=== PATIENT | male | born 1990 | race Caucasian/White ===

== ENCOUNTER 2020-07-25 10:20 | Emergency (ER) | payer BC ==
--- OUTSIDE RECORDS SUMMARY | 2020-07-25 10:23 | XMS REPORT | Continuity of Care Document ---
:1990 Author Organization [facility] t Address [address] [place] [address] Care Team Providers Name Role Phone MÓNICA Attending Clinician Unavailable MEAGAN Attending Clinician Unavailable ALLEY Attending Clinician Unavailable NUNU Attending Clinician Unavailable Problems Condition Condition Condition Status Onset Resolution Last Treating Co mments Source Name Details Category Date Date Treatment Clinician Date Chondromal Chondromal Problem Active U nivers [place] of [place] of HL7.CCDAR2 [place], [place] [facility] Hypogonadi Hypogonadi Problem Active U nivers sm, male sm, male HL7.CCDAR2 [place] of [place] [facility] Screening Screening Problem Active Uni vers for STD for STD HL7.CCDAR2 [place] of ([place] transmit[place] transmitte Ph y[place] d disease) d disease) an s Abnormal Abnormal Problem Active Unive rs urinalysis urinalysis HL7.CCDAR2 ity of [place] [facility] Low back Low back Problem Active Unive rs pain pain HL7.CCDAR2 ity of [place] [facility] Abdominal Abdominal Problem Active Uni vers pain of pain of HL7.CCDAR2 ity of multiple multiple [place] sites sites Physici ans Dysuria Dysuria Problem Active Univers HL7.CCDAR2 ity of [place] [facility] Urethral Urethral Problem Active Unive rs discharge discharge HL7.CCDAR2 ity of [place] [facility] Back pain Back pain Problem Active Uni vers HL7.CCDAR2 [place] of [place] [facility] Peroneal Peroneal Problem Active Unive rs tendinitis tendinitis HL7.CCDAR2 ity of , left , left [place] Physici ans Complete Complete Problem Active Unive rs tear of tear of HL7.CCDAR2 ity of medial medial [place] collateral collateral Ph ysici ligament ligament ans of left of left knee, knee, initial initial encounter encounter Allergies, Adverse Reactions, Alerts This patient has no known allergies or adverse reactions. Social History Smoking Status Start Date Stop Date Source Never smoker [facility] Medications Ordered Filled Start Stop Current Ordering Indication Dosage Frequency Signature Comments Components Source Medication Medication Date Date Medication? Clinician (SIG) Name Name Meloxicam Meloxicam 2017- Yes DUDLEY QD TAKE 1 Univers 7.5 MG Oral 7.5 MG Oral 3-21 MÓNICA TABLET ity of Tablet Tablet 00:00: M.D. DAILY WITH Hermes as 00 FOOD. Physici ans LevoFLOXaci LevoFLOXaci 2015-03 Yes SLOAN 1 QD TAKE 1 Univers n 500 MG n 500 MG 0-28 SAFFARI TABLET it y of Oral Tablet Oral Tablet 00:00: M.D. DAILY. [place] 00 Physici ans Pyridium Pyridium 2015-03 Yes SLOAN Q0.3333D TAKE 1 Univers 200 MG Oral 200 MG Oral 0-28 SAFFARI TABLET 3 ity of Tablet Tablet 00:00: M.D. TIMES [place] 00 DAILY Physici AFTER ans MEALS. Dexilant Dexilant Yes Univers CPDR CPDR ity of [place] Physici ans Procedures Procedure Date / Time Performed Performing Clinician Sour e [U] XRAY KNEE 3 VWS 2017-06-12 00:00:00 [facility] of [place] LEFT [id number] Physicians Encounters Start End Encounter Admission Attending Care Care Encounter Source Date/Time Date/Time Type Type Clinicians Facility Department ID 2017-06-12 2017-06-12 AppointNIA Stevens [place] [id number] Univers 16:30:00 16:30:00 t; DUDLEY SALES it y of TIMOTHY, M.D. [place] M.D. Physici ans 2016-06-07 2016-06-07 AppointNIA Mensah [facility] [id number] Univers 14:00:00 14:00:00 t; Mary BAKER [place] DOUG, P.A. Physi ci ans 2016-02-10 2016-02-10 AppointNIA Roberts [id number] Univers 15:15:00 15:15:00 t; TORI HAGER ity of LEEANN, D.O. [place] D.[place] Physici ans 2016-01-18 2016-01-18 NIA Siddiqui [id number] Univers 15:30:00 15:30:00 t; TORI HAGER itnina of Niki VALLE [place] Niki Physici ans 2015-12-26 2015-12-26 Appointmen NIA EDDY UTP [id number] Univers 09:00:00 09:00:00 t; DELTA EDDY it y of Zoila SORENSON M.D. Physici ans 2015-12-12 2015-12-12 Appointmen NIA EDDY UTP [id number] Univers 13:00:00 13:00:00 t; DELTA EDDY it y of Zoila SORENSON M.D. Physici ans 2015-07-06 2015-07-06 Appointmen NIA RHODSE UTP [id number] Univers 13:00:00 13:00:00 t; Mary BAKER [place] DOUG, P.A. Physi ci ans Results Test Description Test Time Test Comments Results Result Sour e Comments [U] XRAY KNEE 3 2017-06-12 Images Universit y of VWS LEFT [id number] 16:43:00 acquired, not [place] reported on Physicians this accession number.
--- NOTE | 2020-07-25 11:41 | RAD REPORT ---
EXAM DESCRIPTION: RAD - Chest Single View - 07/25/2020 11:36 am CLINICAL HISTORY: PAIN Chest pain. COMPARISON: No comparisons FINDINGS: Portable technique limits examination quality. The lungs are grossly clear. The heart is normal in size. No displaced fractures. IMPRESSION: No acute intrathoracic process suspected.
[2020-07-25 12:22] LABS: Absolute Lymphocytes (CBC) 1.6 K/uL (0.7-4.9); Basophils % 0.7 % (0-1.3); Hematocrit 41.5 % (39.6-49.0); Lymphocytes % 21.8 % (15.3-44.8); MPV 10.4 fL (7.6-11.3); RBC Red Blood Cell Count 4.77 M/uL (4.33-5.43)
[2020-07-25 12:28] LABS: ALT/SGPT 26 U/L (12-78); AST/SGOT 16 U/L (15-37); Albumin 3.9 g/dL (3.4-5.0); Alkaline Phosphatase 79 U/L (45-117); BUN Blood Urea Nitrogen 14 mg/dL (7-18); Bicarbonate 29 mmol/L (21-32); Bilirubin Direct 0.2 mg/dL (0-0.2); Bilirubin Total 0.9 mg/dL (0.2-1.0); Glucose Level 98 mg/dL (74-106); Magnesium 2.1 mg/dL (1.8-2.4); Potassium 4.3 mmol/L (3.5-5.1); Protein, Total 8.1 g/dL (6.4-8.2); Sodium Level 141 mmol/L (136-145); Troponin (Emerg Dept Use Only) < 0.02 ng/mL (0.0-0.045)
--- NOTE | 2020-07-25 13:15 | EDPHYS ---
Physician Documentation [facility] Name: Wilfredo Salomon Age: 30 yrs Sex: Male : 1990 Arrival Date: 07/25/2020 Time: 10:24 Bed 14 Private MD: ED Physician Haroldo Oreilly HPI: 07/25 12:12 This 30 yrs old Male presents to ER via Ambulatory with complaints of Chest kb Tightness, Nausea, Dizziness. 12:12 The patient or guardian reports chest pain that is located primarily in the substernal kb area. The pain does not radiate. Associated signs and symptoms: Pertinent positives: dizziness, nausea, vomiting. The chest pain is described as aching. Duration: The patient or guardian reports a single episode, that is now resolved. Modifying factors: The symptoms are alleviated by nothing. the symptoms are aggravated by nothing. Severity of pain: At its worst the pain was mild in the emergency department the pain has resolved. The patient has not experienced similar symptoms in the past. The patient has not recently seen a physician. Pt states he woke up late for work, called to let them know, then laid in bed for a little longer. While laying in bed he felt like the room started spinning, then started having chest pain. Pt got up and went outside where he felt nausea and had an episode of vomiting. Symptoms now resolved.. Historical: - Allergies: 10:43 No Known Allergies; em - PMHx: 10:43 GERD; em - PSHx: 10:43 None; em - Immunization history:: Adult Immunizations up to date, Client reports having NOT received the Covid vaccine. - Social history:: Smoking status: Patient denies any tobacco usage or history of. ROS: 12:11 Constitutional: Negative for fever, chills, and weight loss, Respiratory: Negative for kb shortness of breath, cough, wheezing, and pleuritic chest pain, MS/Extremity: Negative for injury and deformity, Skin: Negative for injury, rash, and discoloration. 12:11 Cardiovascular: Positive for chest pain, Negative for edema, orthopnea, palpitations, paroxysmal nocturnal dyspnea. 12:11 Abdomen/GI: Positive for nausea and vomiting, Negative for abdominal pain, diarrhea, constipation. 12:11 Neuro: Positive for dizziness. Exam: 12:07 Constitutional: This is a well developed, well nourished patient who is awake, alert, kb and in no acute distress. Head/Face: Normocephalic, atraumatic. Cardiovascular: Regular rate and rhythm with a normal S1 and S2. No gallops, murmurs, or rubs. No pulse deficits. Respiratory: Respirations even and unlabored. No increased work of breathing, no retractions or nasal flaring. Abdomen/GI: Soft, non-tender. No distention Skin: Warm, dry with normal turgor. Normal color. MS/ Extremity: Pulses equal, no cyanosis. Neurovascular intact. Full, normal range of motion. Neuro: Awake and alert, GCS 15, oriented to person, place, time, and situation. Moves all extremities. Normal gait. 12:07 ECG was reviewed by the Attending Physician. Vital Signs: 10:41 Pulse 79; Resp 18; Temp 98.1; Pulse Ox 99% ; Weight 127.01 kg; Height 5 ft. 10 in. em (177.80 cm); Pain 0/10; 10:47 BP 145 / 103; em 12:07 BP 124 / 87; Pulse 62; Resp 17; Pulse Ox 99% on R/A; tw2 13:01 BP 124 / 86 Supine; Pulse 68; Resp 17; Pulse Ox 99% on R/A; tw2 13:01 BP 129 / 83 Standing; Pulse 71; tw2 13:01 BP 128 / 91 Sitting; Pulse 67; tw2 10:41 Body Mass Index 40.18 (127.01 kg, 177.80 cm) em 13:01 pt states "i dont feel just right, like a little lightheaded but the room rooms not tw2 moving" MDM: 11:03 Patient medically screened. kb 12:10 Data reviewed: vital signs, nurses notes. Data interpreted: Pulse oximetry: on room air kb is 99 %. Interpretation: normal. 13:07 Counseling: I had a detailed discussion with the patient and/or guardian regarding: the kb historical points, exam findings, and any diagnostic results supporting the discharge/admit diagnosis, lab results, radiology results, the need for outpatient follow up, a family practitioner, to return to the emergency department if symptoms worsen or persist or if there are any questions or concerns that arise at home. 07/25 11:25 Order name: Basic Metabolic Panel; Complete Time: 12:29 kb 07/25 11:25 Order name: CBC with Diff; Complete Time: 12:48 kb 07/25 11:25 Order name: LFT's; Complete Time: 12:29 kb 07/25 11:25 Order name: Magnesium; Complete Time: 12:29 kb 07/25 11:25 Order name: Troponin (emerg Dept Use Only); Complete Time: 12:29 kb 07/25 11:25 Order name: XRAY Chest (1 view); Complete Time: 11:44 kb 07/25 11:25 Order name: EKG; Complete Time: 11:26 kb 07/25 11:25 Order name: Cardiac monitoring; Complete Time: 12:05 kb 07/25 11:25 Order name: EKG - Nurse/Tech; Complete Time: 12:07 kb 07/25 11:25 Order name: IV Saline Lock; Complete Time: 12:07 kb 07/25 11:25 Order name: Labs collected and sent; Complete Time: 12:07 kb 07/25 11:25 Order name: O2 Per Protocol; Complete Time: 11:43 kb 07/25 11:25 Order name: O2 Sat Monitoring; Complete Time: 11:43 kb 07/25 12:30 Order name: Orthostatics; Complete Time: 13:01 kb EC:07 Rate is 69 beats/min. Rhythm is regular. QRS [place] is Normal. ND interval is normal at kb 170 msec. QRS interval is normal at 90 msec. QT interval is normal at 386 msec. Administered Medications: No medications were administered Disposition: 07/25/20 13:14 Discharged to Home. Impression: Chest pain, unspecified, Dizziness and giddiness. - Condition is Stable. - Discharge Instructions: Nonspecific Chest Pain, Dkor-di-Drxw, Vertigo, Vvza-cu-Mixy. - Medication Reconciliation Form, Thank You Letter, Antibiotic Education, Prescription Opioid Use, Work release form form. - Follow up: Emergency Department; When: As needed; Reason: Worsening of condition. Follow up: Private Physician; When: 2 - 3 days; Reason: Recheck today's complaints, Continuance of care, Re-evaluation by your physician. Addendum: 07/28/2020 06:14 Co-signature as Attending Physician, Haroldo kiran a2 Signatures: Dispatcher [employer] Jesusita Aguilar, TOE TRIMMER-C TOE TRIMMER-Ckb Reid Black, RN RN em Carolynn Fay RN RN tw2 Haroldo Oreilly MD MD ma2 Corrections: (The following items were deleted from the chart) 07/25 13:47 13:14 07/25/2020 13:14 Discharged to Home. Impression: Chest pain, unspecified; tw2 Dizziness and giddiness. Condition is Stable. Forms are Work release form, Medication Reconciliation Form, Thank You Letter, Antibiotic Education, Prescription Opioid Use. Follow up: Emergency Department; When: As needed; Reason: Worsening of condition. Follow up: Private Physician; When: 2 - 3 days; Reason: Recheck today's complaints, Continuance of care, Re-evaluation by your physician. kb
--- NOTE | 2020-07-25 13:15 | ER ---
Nurse's Notes [facility] Name: Wilfredo Salomon Age: 30 yrs Sex: Male : 1990 Arrival Date: 07/25/2020 Time: 10:24 Bed 14 Private MD: Diagnosis: Chest pain, unspecified;Dizziness and giddiness Presentation: 07/25 10:44 Chief complaint: Patient states: I woke up late for work and while I was laying in bed em I became dizzy, like the room was spinning. Then I started having chest pains. When I got up I had nausea and vomited once. Coronavirus screen: Client denies travel out of the [place] in the last 14 days. Ebola Screen: Patient negative for fever greater than or equal to 101.5 degrees Fahrenheit, and additional compatible Ebola Virus Disease symptoms Patient denies exposure to infectious person. Patient denies travel to an Ebola-affected area in the 21 days before illness onset. No symptoms or risks identified at this time. Initial Sepsis Screen: Does the patient meet any 2 criteria? No. Patient's initial sepsis screen is negative. Does the patient have a suspected source of infection? No. Patient's initial sepsis screen is negative. Risk Assessment: Do you want to hurt yourself or someone else? Patient reports no desire to harm self or others. Onset of symptoms was July 25, 2020 at 09:00. 10:44 Method Of Arrival: Ambulatory em 10:44 Acuity: KENRICK 3 em Triage Assessment: 10:43 General: Appears in no apparent distress. comfortable, Behavior is calm, cooperative. em Pain: Denies pain. Cardiovascular: Cardiovascular: Reports chest pain, since 929, resolved at this time. Historical: - Allergies: 10:43 No Known Allergies; em - PMHx: 10:43 GERD; em - PSHx: 10:43 None; em - Immunization history:: Adult Immunizations up to date, Client reports having NOT received the Covid vaccine. - Social history:: Smoking status: Patient denies any tobacco usage or history of. Screenin:12 Abuse screen: Denies threats or abuse. Nutritional screening: No deficits noted. tw2 Tuberculosis screening: No symptoms or risk factors identified. Fall Risk None identified. Assessment: 11:50 General: Appears in no apparent distress. obese, well groomed, Behavior is calm, tw2 cooperative, agitated. Pain: Complains of pain in chest Pain does not radiate. Pain began this morning while in bed. Neuro: Level of Consciousness is awake, alert, obeys commands, Oriented to person, place, time, situation. Cardiovascular: Reports chest pain, that comes in waves and "when the pain hits he gets nauseous and dizzy". Cardiovascular: Denies shortness of breath, Capillary refill < 3 seconds Patient's skin is warm and dry. Respiratory: Airway is patent Respiratory effort is even, unlabored, Respiratory pattern is regular, symmetrical. GI: No signs and/or symptoms were reported involving the gastrointestinal system. : No signs and/or symptoms were reported regarding the genitourinary system. Musculoskeletal: Range of motion: intact in all extremities. 12:11 Reassessment: Patient appears in no apparent distress at this time. No changes from tw2 previously documented assessment. Patient and/or family updated on plan of care and expected duration. Pain level reassessed. Patient is alert, oriented x 3, equal unlabored respirations, skin warm/dry/pink. 13:03 Reassessment: Patient appears in no apparent distress at this time. No changes from tw2 previously documented assessment. Patient and/or family updated on plan of care and expected duration. Pain level reassessed. Patient is alert, oriented x 3, equal unlabored respirations, skin warm/dry/pink. 13:10 Reassessment: provider at bedside at this time. tw2 13:47 Reassessment: Patient appears in no apparent distress at this time. No changes from tw2 previously documented assessment. Patient and/or family updated on plan of care and expected duration. Pain level reassessed. Patient is alert, oriented x 3, equal unlabored respirations, skin warm/dry/pink. Vital Signs: 10:41 Pulse 79; Resp 18; Temp 98.1; Pulse Ox 99% ; Weight 127.01 kg; Height 5 ft. 10 in. em (177.80 cm); Pain 0/10; 10:47 BP 145 / 103; em 12:07 BP 124 / 87; Pulse 62; Resp 17; Pulse Ox 99% on R/A; tw2 13:01 BP 124 / 86 Supine; Pulse 68; Resp 17; Pulse Ox 99% on R/A; tw2 13:01 BP 129 / 83 Standing; Pulse 71; tw2 13:01 BP 128 / 91 Sitting; Pulse 67; tw2 10:41 Body Mass Index 40.18 (127.01 kg, 177.80 cm) em 13:01 pt states "i dont feel just right, like a little lightheaded but the room rooms not tw2 moving" ED Course: 10:24 Patient arrived in ED. ds1 10:41 Arm band placed on right wrist. em 10:46 Triage completed. em 11:02 Jesusita Heaton [facility]-C [facility]. kb 11:02 Haroldo Oreilly MD is Attending Physician. kb 11:34 X-ray completed. Patient tolerated procedure well. Patient moved to radiology sw ambulatory. Patient moved back from radiology. 11:34 XRAY Chest (1 view) In Process Unspecified. EDMS 11:43 Carolynn Fay, AARON is Primary Nurse. tw2 11:50 Bed in low position. Call light in reach. environmental communications specialist on. Pulse ox on. NIBP on. tw2 11:57 Missed attempt(s): 20 gauge in right hand. Bleeding controlled, band aid applied, tw2 catheter tip intact. Inserted saline lock: 20 gauge in right antecubital area, using aseptic technique. Blood collected. 12:12 Patient maintains SpO2 saturation greater than 95% on room air. tw2 13:10 No provider procedures requiring assistance completed. tw2 13:47 IV discontinued, intact, bleeding controlled, No redness/swelling at site. Pressure tw2 dressing applied. Administered Medications: No medications were administered Outcome: 13:14 Discharge ordered by . kb 13:47 Discharged to home ambulatory. tw2 13:47 Condition: stable 13:47 Discharge instructions given to patient, Instructed on discharge instructions, follow up and referral plans. Demonstrated understanding of instructions, follow-up care. 13:47 Patient left the ED. tw2 Signatures: Dispatcher [employer] EDVT Jesusita Heaton FNP-C FNP-Ckb Munoz, Edgar, RN RN Miriam Simms ds1 Courtney Crews Carolynn Fay RN RN tw2
[2020-07-25 14:04] VITALS: TEMP 98.1; O2SAT 99
[2020-07-25 14:08] VITALS: BP 128/91
--- NOTE | 2020-07-26 11:20 | EKG ---
Test Date: 2020-07-25 Test Time: 11:48:07 Ship Keeper: CAROLINA MEASUREMENT RESULTS: Intervals: Rate: 69 LA: 170 QRSD: 90 QT: 386 QTc: 413 [place]: P: 45 LA: 170 QRS: 34 T: 35 INTERPRETIVE STATEMENTS: Normal sinus rhythm Early repolarization Normal ECG No previous ECG available for comparison Electronically Signed On 07-26-20 11:17:19 CDT by Jorge Alberto Tapia
== END 2020-07-25 13:47 | disposition home or self-care (01) ==
LOC: ER 10:20
DX: R07.9 Chest pain, unspecified (principal); R42 Dizziness and giddiness
CPT/HCPCS: 36415; 71045; 80048; 80076; 83735; 84484; 85025; 93005; 99285